=== PATIENT | female | born 1965 | race Two or more races ===

== ENCOUNTER 2018-10-12 16:43 | Emergency (ER) | payer OTHER ==
[~2018-10-12] VITALS: Ht 167.6 cm; Wt 68.0 kg
[2018-10-12] MEDS ORDERED: HUMULIN N100 UNIT/2 (17:04)
[2018-10-12] MEDS ORDERED: LANTUS SOL100 UNIT/1 (17:05)
== END 2018-10-12 20:45 | disposition home or self-care (01) ==
LOC: ER 16:43
DX: M54.5 Low back pain (principal)